=== PATIENT | male | born 1970 | race Caucasian/White ===

== ENCOUNTER 2021-08-23 18:53 | Emergency (ER) | payer OTHER ==
[~2021-08-23] VITALS: Ht 177.8 cm; Wt 98.9 kg
[2021-08-23] MEDS ORDERED: CEPHALEXIN500 MG PO (20:08)
[2021-08-23 20:22] VITALS: BP 178/86
== END 2021-08-23 20:24 | disposition home or self-care (01) ==
LOC: ER 18:53
DX: R22.42 Localized swelling, mass and lump, left lower limb (principal); M79.605 Pain in left leg; R53.1 Weakness